=== PATIENT | female | born 1945 | race Caucasian/White ===

== ENCOUNTER → 2018-09-17 | Outpatient (CLI) | payer MEDICARE | LOC: M.RAD 12:27 | DX: Z12.31 Encounter for screening mammogram for malignant neoplasm of breast (principal) ==

== ENCOUNTER → 2019-09-22 | Outpatient (CLI) | payer MEDICARE | LOC: M.RAD 10:29 | DX: Z12.31 Encounter for screening mammogram for malignant neoplasm of breast (principal) ==

== ENCOUNTER → 2020-03-29 | Outpatient (CLI) | payer MEDICARE | LOC: M.ULTRA 09:33 | DX: N28.1 Cyst of kidney, acquired (principal) ==

== ENCOUNTER → 2021-04-04 | Outpatient (CLI) | payer OTHER | LOC: M.CT 10:14 | PROVIDERS: ATTEND Internal Medicine | DX: Z13.6 Encounter for screening for cardiovascular disorders (principal) ==

== ENCOUNTER → 2021-04-04 | Outpatient (CLI) | payer MEDICARE | LOC: M.RAD 04-01 15:31 | PROVIDERS: ATTEND Internal Medicine | DX: M85.852 Other specified disorders of bone density and structure, left thigh (principal); M85.851 Other specified disorders of bone density and structure, right thigh; E04.8 Other specified nontoxic goiter; M81.0 Age-related osteoporosis without current pathological fracture ==